=== PATIENT | female | born 1940 | race African-American/Black ===

== ENCOUNTER 2023-03-06 14:37 | Inpatient (IN) | payer MEDICARE, OTHER ==
[~2023-03-06] VITALS: Ht 160 cm; Wt 44.0 kg
[2023-03-06 15:57] LABS: BASOPHILS % (AUTO) 0.1 % (0.0-2.0); EOSINOPHILS # (AUTO) 0.1 K/uL (0.0-0.7); EOSINOPHILS % (AUTO) 0.4 % (0.0-6.0); HEMATOCRIT 26 % (33-45); HEMOGLOBIN 8.2 g/dL (11.5-14.8); LYMPHOCYTES # (AUTO) 1.2 K/uL (0.8-4.8); MEAN CORPUSCULAR HEMOGLOBIN 27 PG (26.0-33.0); MEAN CORPUSCULAR HGB CONC 32 g/dl (31.0-36.0); MEAN CORPUSCULAR VOLUME 84 fL (82-100); MONOCYTES # (AUTO) 0.6 K/uL (0.1-1.30); MONOCYTES % (AUTO) 4.7 % (2.0-12.0); NEUTROPHILS # (AUTO) 11.4 K/uL (1.8-8.9); NEUTROPHILS % (AUTO) 85.8 % (43.0-81.0); PLATELET COUNT (AUTO) 325 K/uL (150-450); RED BLOOD CELL COUNT(AUTO) 3.04 MIL/uL (4.0-5.2); RED CELL DISTRIBUTION WIDTH 14.6 % (11.5-15.0); WHITE BLOOD COUNT (AUTO) 13.3 K/uL (4.3-11.0)
[2023-03-06 16:05] LABS: CALCIUM, SERUM 8.9 mg/dL (8.5-10.1); CARBON DIOXIDE 23 mmol/L (21-32); CHLORIDE 99 mmol/L (98-107); GLUCOSE 253 mg/dL (74-106); POTASSIUM 4.4 mmol/L (3.5-5.1); SODIUM SERUM 131 mmol/L (136-145); UREA NITROGEN, BLOOD 27 mg/dL (7-18)
[2023-03-06] MEDS ORDERED: LEVO100T PO (16:09)
[2023-03-06] MEDS ORDERED: NORM210S TP (16:09)
[2023-03-06] MEDS ORDERED: AMIN887L7 PO (16:09)
[2023-03-06] MEDS ORDERED: ACET-868 PO (16:09)
[2023-03-06] MEDS ORDERED: OXYB5TAB29 PO (16:09)
[2023-03-06] MEDS ORDERED: MULT-213 PO (16:09)
[2023-03-06] MEDS ORDERED: ASCO500T10 PO (16:09)
[2023-03-06] MEDS ORDERED: DAPA5TAB PO (16:09)
[2023-03-06] MEDS ORDERED: METF-441 PO (16:09)
[2023-03-06] MEDS ORDERED: CALC500T53 PO (16:09)
[2023-03-06] MEDS ORDERED: MENT113O TP (16:09)
[2023-03-06] MEDS ORDERED: PANT40TA2 PO (16:09)
[2023-03-06] MEDS ORDERED: ARGI1POW13 PO (16:09)
[2023-03-06] MEDS ORDERED: SENN-261 PO (16:09)
[2023-03-06] MEDS ORDERED: AMLO2.5T2 PO (16:09)
[2023-03-06] MEDS ORDERED: ATOR40TA PO (16:09)
[2023-03-06] MEDS ORDERED: POVI3780 TP (16:09)
[2023-03-06] MEDS ORDERED: GABA-532 PO (16:09)
[2023-03-06 16:12] LABS: ALANINE AMINOTRANSFERASE 40 U/L (12-78); ALBUMIN 2.1 g/dL (3.4-5.0); ALKALINE PHOSPHATASE 138 U/L (46-116); ASPARTATE AMINOTRANSFERASE 51 U/L (15-37); BILIRUBIN,DIRECT 0.2 mg/dL (0.0-0.2); BILIRUBIN,TOTAL 0.4 mg/dL (0.2-1.0); TOTAL PROTEIN, SERUM 7.5 g/dL (6.4-8.2)
[2023-03-06 17:37] LABS: EOSINOPHILS % (MANUAL) 1 % (0-4); LYMPHOCYTES % (MANUAL) 8 % (16-48); MONOCYTES % (MANUAL) 4 % (0-11.0); NEUTROPHILS % (MANUAL) 87 (42-76); PLATELET ESTIMATE ADEQUATE
[2023-03-06 17:38] LABS: ANISOCYTOSIS 1+; ROULEAUX 1+
[2023-03-06 18:24] LABS: APPEARANCE,URINE SLIGHTLY CLOUDY (CLEAR); BILIRUBIN,URINE NEGATIVE (NEGATIVE); BLOOD, URINE TRACE-INTA Ery/uL (NEGATIVE); COLOR,URINE YELLOW (YELLOW); KETONES,URINE NEGATIVE (NEGATIVE); LEUKOCYTE ESTERASE ,URINE 2+ (NEGATIVE); NITRITE, URINE NEGATIVE (NEGATIVE); PROTEIN,URINE 2+ mg/dl (NEGATIVE); UGLUCOSE 3+ mg/dL (NEGATIVE); UROBILINOGEN,URINE 0.2 EU/dL (0.2)
[2023-03-06 18:30] LABS: RBC,URINE 0-2 /HPF (0-2); WBC,URINE 21-50 /HPF (0-3)
[2023-03-06 18:33] LABS: ADD URINE CULTURE YES; BACTERIA,URINE 2+ /HPF (None Seen)
[2023-03-06 21:00] VITALS: BP 118/59; TEMP 98.2; O2SAT 98
[2023-03-06] MEDS ORDERED: CEFTRIAXONE 1GM BAG (ER ONLY) 1 GM/50 ML PIGGYBACK IV ONE (21:00)
[2023-03-06] MEDS ORDERED: ONDANSETRON HCL/PF 4 MG/2 ML VIAL IVP PRN (22:30)
[2023-03-06] MEDS ORDERED: MAG HYDROX/AL HYDROX/SIMETH 30 ML UDC PO PRN (22:30)
[2023-03-06] MEDS ORDERED: ZOLPIDEM TARTRATE 5 MG TABLET PO PRN (22:30)
[2023-03-06] MEDS ORDERED: ACETAMINOPHEN 325 MG TABLET PO PRN (22:30)
[2023-03-06] MEDS ORDERED: SENNOSIDES 8.6 MG TABLET PO PRN (22:30)
[2023-03-06] MEDS ORDERED: MAGNESIUM HYDROXIDE 30 ML UDC PO PRN (22:30)
[2023-03-06] MEDS: IV NS 0.9% 1,000 ML IV PRN (22:32)
[2023-03-06] MEDS ORDERED: VANCOMYCIN 1 GM in IV D5W 250ml IV ONE (23:00)
[2023-03-06] MEDS ORDERED: VANCOMYCIN 1 GM /D5W 250 ML PB IV ONE (23:01)
[2023-03-07] MEDS ORDERED: PIPERACI/TAZO 3.375GM/D5W 50ML PB IV ONE ×2 (00:51→05:55)
[2023-03-07] MEDS: PIPERACILLIN /TAZOBACTAM 3.375 G in IV D5W 50 ML IV SCH ×4 (00:53→18:25)
[2023-03-07 06:38] LABS: BASOPHILS % (AUTO) 0.2 % (0.0-2.0); EOSINOPHILS # (AUTO) 0.1 K/uL (0.0-0.7); EOSINOPHILS % (AUTO) 1.4 % (0.0-6.0); HEMATOCRIT 25 % (33-45); HEMOGLOBIN 8.2 g/dL (11.5-14.8); LYMPHOCYTES # (AUTO) 0.9 K/uL (0.8-4.8); LYMPHOCYTES % (AUTO) 8.2 % (20.0-44.0); MEAN CORPUSCULAR HEMOGLOBIN 28 PG (26.0-33.0); MEAN CORPUSCULAR HGB CONC 33 g/dl (31.0-36.0); MEAN CORPUSCULAR VOLUME 85 fL (82-100); MONOCYTES # (AUTO) 0.6 K/uL (0.1-1.30); MONOCYTES % (AUTO) 5.9 % (2.0-12.0); NEUTROPHILS % (AUTO) 84.3 % (43.0-81.0); PLATELET COUNT (AUTO) 333 K/uL (150-450); RED BLOOD CELL COUNT(AUTO) 2.94 MIL/uL (4.0-5.2); RED CELL DISTRIBUTION WIDTH 14.3 % (11.5-15.0); WHITE BLOOD COUNT (AUTO) 10.7 K/uL (4.3-11.0)
[2023-03-07] MEDS: INSULIN REGULAR, HUMAN 100 UNIT/ML 3 ML VIAL SQ PRN ×4 (06:57→23:02)
[2023-03-07 07:19] LABS: CALCIUM, SERUM 8.8 mg/dL (8.5-10.1); CREATININE 0.8 mg/dL (0.6-1.3); MAGNESIUM 1.9 mg/dL (1.8-2.4); PHOSPHORUS 3.1 mg/dL (2.5-4.9); POTASSIUM 3.9 mmol/L (3.5-5.1)
[2023-03-07] MEDS: PANTOPRAZOLE 40 MG TABLET.DR PO SCH (07:30)
[2023-03-07] MEDS: LEVOTHYROXINE SODIUM 100 MCG TABLET PO SCH (07:30)
[2023-03-07] MEDS: BLOOD SUGAR DIAGNOSTIC 1 EACH STRIP IN SCH ×4 (07:30→22:49)
[2023-03-07 08:00] VITALS: BP 116/54; TEMP 97.7; O2SAT 100
[2023-03-07] MEDS: MULTIVIT W/MINERALS 1 TAB TABLET PO SCH (09:00)
[2023-03-07] MEDS: ASCORBIC ACID 500 MG TABLET PO SCH (09:00)
[2023-03-07] MEDS: CALCIUM CARBONATE (1250) 500 MG TABLET PO SCH (09:00)
[2023-03-07] MEDS: PROSTAT (PYXIS) 30 ML UDC PO SCH (09:00)
[2023-03-07] MEDS: AMLODIPINE BESYLATE 2.5 MG TABLET PO SCH (09:00)
[2023-03-07] MEDS: GABAPENTIN 100 MG CAPSULE PO SCH ×3 (09:00→18:24)
[2023-03-07] MEDS: ARGININE/GLUTAMINE/CALCIUM BMB 1 EACH POWD.PACK PO SCH ×2 (09:00→18:25)
[2023-03-07] MEDS ORDERED: Medication Not On Formulary EA (Dapagliflozin Propanediol (Farxiga) 5 MG) PO SCH (09:00)
[2023-03-07] MEDS: Z GUARD REMEDY 4 OZ OINT TP SCH (11:58)
[2023-03-07 18:35] VITALS: BP 136/65; TEMP 96.4; O2SAT 98
[2023-03-07 20:00] VITALS: BP 101/46; TEMP 97.9; O2SAT 99
[2023-03-07] MEDS: OXYBUTYNIN CHLORIDE ER 5 MG TAB PO SCH (22:49)
[2023-03-07] MEDS: ATORVASTATIN 40 MG TABLET PO SCH (22:49)
[2023-03-07] MEDS: VANCOMYCIN 0.75 GM in IV D5W 250 ML IV SCH (22:50)
[2023-03-08] MEDS: PIPERACILLIN /TAZOBACTAM 3.375 G in IV D5W 50 ML IV SCH ×4 (00:04→17:06)
[2023-03-08 04:00] VITALS: BP 123/53; TEMP 98.8; O2SAT 98
[2023-03-08 06:04] LABS: BASOPHILS % (AUTO) 0.4 % (0.0-2.0); EOSINOPHILS # (AUTO) 0.4 K/uL (0.0-0.7); EOSINOPHILS % (AUTO) 3.8 % (0.0-6.0); HEMATOCRIT 25 % (33-45); HEMOGLOBIN 8.2 g/dL (11.5-14.8); LYMPHOCYTES # (AUTO) 1.1 K/uL (0.8-4.8); MEAN CORPUSCULAR HEMOGLOBIN 28 PG (26.0-33.0); MEAN CORPUSCULAR HGB CONC 33 g/dl (31.0-36.0); MEAN CORPUSCULAR VOLUME 85 fL (82-100); MONOCYTES # (AUTO) 0.7 K/uL (0.1-1.30); MONOCYTES % (AUTO) 6.5 % (2.0-12.0); NEUTROPHILS # (AUTO) 8.6 K/uL (1.8-8.9); NEUTROPHILS % (AUTO) 79.3 % (43.0-81.0); PLATELET COUNT (AUTO) 332 K/uL (150-450); RED BLOOD CELL COUNT(AUTO) 2.97 MIL/uL (4.0-5.2); RED CELL DISTRIBUTION WIDTH 14.6 % (11.5-15.0); WHITE BLOOD COUNT (AUTO) 10.8 K/uL (4.3-11.0)
[2023-03-08 06:25] LABS: CREATININE 0.8 mg/dL (0.6-1.3); POTASSIUM 4.2 mmol/L (3.5-5.1)
[2023-03-08 06:29] LABS: MAGNESIUM 2.2 mg/dL (1.8-2.4); PHOSPHORUS 3.4 mg/dL (2.5-4.9)
[2023-03-08 06:41] LABS: THYROID STIMULATING HORMONE 3.544 uIU/mL (0.358-3.74); URIC ACID 1.8 mg/dL (2.6-7.2)
[2023-03-08] MEDS: INSULIN REGULAR, HUMAN 100 UNIT/ML 3 ML VIAL SQ PRN ×4 (07:04→22:34)
[2023-03-08] MEDS: BLOOD SUGAR DIAGNOSTIC 1 EACH STRIP IN SCH ×4 (07:08→22:32)
[2023-03-08] MEDS: LEVOTHYROXINE SODIUM 100 MCG TABLET PO SCH ×2 (07:30→08:35)
[2023-03-08 08:00] VITALS: BP 107/57; TEMP 98.5; O2SAT 99
[2023-03-08] MEDS: ARGININE/GLUTAMINE/CALCIUM BMB 1 EACH POWD.PACK PO SCH ×2 (08:32→16:23)
[2023-03-08] MEDS: MULTIVIT W/MINERALS 1 TAB TABLET PO SCH ×2 (08:35→08:46)
[2023-03-08] MEDS: PANTOPRAZOLE 40 MG TABLET.DR PO SCH (08:35)
[2023-03-08] MEDS: GABAPENTIN 100 MG CAPSULE PO SCH ×3 (08:35→16:23)
[2023-03-08] MEDS: ASCORBIC ACID 500 MG TABLET PO SCH (08:35)
[2023-03-08] MEDS: CALCIUM CARBONATE (1250) 500 MG TABLET PO SCH ×2 (08:36→08:45)
[2023-03-08] MEDS: PROSTAT (PYXIS) 30 ML UDC PO SCH ×2 (08:36→08:46)
[2023-03-08] MEDS: AMLODIPINE BESYLATE 2.5 MG TABLET PO SCH ×2 (08:37→08:45)
[2023-03-08] MEDS: Z GUARD REMEDY 4 OZ OINT TP SCH (08:37)
[2023-03-08] MEDS: DAPAGLIFLOZIN PROPANEDIOL 5 MG TABLET PO SCH (08:38)
[2023-03-08 20:34] VITALS: BP 113/58; TEMP 98; O2SAT 99
[2023-03-08] MEDS: OXYBUTYNIN CHLORIDE ER 5 MG TAB PO SCH (22:32)
[2023-03-08] MEDS: ATORVASTATIN 40 MG TABLET PO SCH (22:32)
[2023-03-08] MEDS: VANCOMYCIN 0.75 GM in IV D5W 250 ML IV SCH (22:32)
[2023-03-09] MEDS: PIPERACILLIN /TAZOBACTAM 3.375 G in IV D5W 50 ML IV SCH ×5 (00:07→23:24)
[2023-03-09] MEDS: IV NS 0.9% 1,000 ML IV PRN (03:18)
[2023-03-09] MEDS: BLOOD SUGAR DIAGNOSTIC 1 EACH STRIP IN SCH ×4 (06:44→22:04)
[2023-03-09 06:45] LABS: CALCIUM, SERUM 8.7 mg/dL (8.5-10.1); CREATININE 0.8 mg/dL (0.6-1.3); POTASSIUM 4.2 mmol/L (3.5-5.1)
[2023-03-09] MEDS: INSULIN REGULAR, HUMAN 100 UNIT/ML 3 ML VIAL SQ PRN ×4 (06:47→22:04)
[2023-03-09] MEDS: PANTOPRAZOLE 40 MG TABLET.DR PO SCH (07:30)
[2023-03-09 08:00] VITALS: BP 90/54; TEMP 98.1; O2SAT 100
[2023-03-09] MEDS: LEVOTHYROXINE SODIUM 100 MCG TABLET PO SCH (08:13)
[2023-03-09] MEDS: DAPAGLIFLOZIN PROPANEDIOL 5 MG TABLET PO SCH (08:13)
[2023-03-09] MEDS: GABAPENTIN 100 MG CAPSULE PO SCH ×4 (08:13→17:42)
[2023-03-09] MEDS: ARGININE/GLUTAMINE/CALCIUM BMB 1 EACH POWD.PACK PO SCH ×3 (08:15→17:00)
[2023-03-09] MEDS: AMLODIPINE BESYLATE 2.5 MG TABLET PO SCH (08:18)
[2023-03-09] MEDS: PROSTAT (PYXIS) 30 ML UDC PO SCH (08:19)
[2023-03-09] MEDS: CALCIUM CARBONATE (1250) 500 MG TABLET PO SCH (08:19)
[2023-03-09] MEDS: ASCORBIC ACID 500 MG TABLET PO SCH (08:19)
[2023-03-09] MEDS: MULTIVIT W/MINERALS 1 TAB TABLET PO SCH (08:19)
[2023-03-09] MEDS: Z GUARD REMEDY 4 OZ OINT TP SCH (08:20)
[2023-03-09] MEDS: ACETAMINOPHEN 325 MG TABLET PO PRN (09:19)
[2023-03-09] MEDS: GLUCERNA SHAKE 237 ML CAN PO SCH ×2 (11:49→17:42)
[2023-03-09 16:00] VITALS: BP 101/56; TEMP 98.8; O2SAT 97
[2023-03-09] MEDS: APIXABAN 2.5 MG TABLET PO SCH (17:43)
[2023-03-09 20:00] VITALS: BP_SYST 106; BP_DIAS 50; BP_DIAS 55; TEMP 98; O2SAT 98
[2023-03-09] MEDS: ATORVASTATIN 40 MG TABLET PO SCH (21:36)
[2023-03-09] MEDS: OXYBUTYNIN CHLORIDE ER 5 MG TAB PO SCH (21:36)
[2023-03-09] MEDS: VANCOMYCIN 0.75 GM in IV D5W 250 ML IV SCH (23:00)
[2023-03-10] MEDS: PIPERACILLIN /TAZOBACTAM 3.375 G in IV D5W 50 ML IV SCH ×3 (05:23→17:34)
[2023-03-10] MEDS: PANTOPRAZOLE 40 MG TABLET.DR PO SCH (07:30)
[2023-03-10] MEDS: LEVOTHYROXINE SODIUM 100 MCG TABLET PO SCH (07:30)
[2023-03-10 08:00] VITALS: BP 100/50; TEMP 99.6; O2SAT 97
[2023-03-10] MEDS: GLUCERNA SHAKE 237 ML CAN PO SCH ×3 (08:00→17:28)
[2023-03-10] MEDS: BLOOD SUGAR DIAGNOSTIC 1 EACH STRIP IN SCH ×4 (08:02→21:50)
[2023-03-10] MEDS: PROSTAT (PYXIS) 30 ML UDC PO SCH (09:00)
[2023-03-10] MEDS: ASCORBIC ACID 500 MG TABLET PO SCH (09:00)
[2023-03-10] MEDS: ARGININE/GLUTAMINE/CALCIUM BMB 1 EACH POWD.PACK PO SCH ×2 (09:00→17:29)
[2023-03-10] MEDS: MULTIVIT W/MINERALS 1 TAB TABLET PO SCH (09:00)
[2023-03-10] MEDS: Z GUARD REMEDY 4 OZ OINT TP SCH (09:00)
[2023-03-10] MEDS: CALCIUM CARBONATE (1250) 500 MG TABLET PO SCH (09:00)
[2023-03-10] MEDS: DAPAGLIFLOZIN PROPANEDIOL 5 MG TABLET PO SCH (09:00)
[2023-03-10] MEDS: APIXABAN 2.5 MG TABLET PO SCH (09:00)
[2023-03-10] MEDS: GABAPENTIN 100 MG CAPSULE PO SCH ×3 (09:00→17:28)
[2023-03-10] MEDS: AMLODIPINE BESYLATE 2.5 MG TABLET PO SCH (09:00)
[2023-03-10 09:12] LABS: BASOPHILS % (AUTO) 0.4 % (0.0-2.0); EOSINOPHILS # (AUTO) 0.2 K/uL (0.0-0.7); EOSINOPHILS % (AUTO) 1.5 % (0.0-6.0); HEMATOCRIT 24 % (33-45); HEMOGLOBIN 7.8 g/dL (11.5-14.8); LYMPHOCYTES # (AUTO) 1.2 K/uL (0.8-4.8); LYMPHOCYTES % (AUTO) 9.9 % (20.0-44.0); MEAN CORPUSCULAR HEMOGLOBIN 27 PG (26.0-33.0); MEAN CORPUSCULAR HGB CONC 32 g/dl (31.0-36.0); MEAN CORPUSCULAR VOLUME 85 fL (82-100); MONOCYTES # (AUTO) 0.7 K/uL (0.1-1.30); MONOCYTES % (AUTO) 5.5 % (2.0-12.0); NEUTROPHILS # (AUTO) 9.9 K/uL (1.8-8.9); NEUTROPHILS % (AUTO) 82.7 % (43.0-81.0); PLATELET COUNT (AUTO) 308 K/uL (150-450); RED BLOOD CELL COUNT(AUTO) 2.86 MIL/uL (4.0-5.2); RED CELL DISTRIBUTION WIDTH 14.6 % (11.5-15.0)
[2023-03-10 09:27] LABS: ALANINE AMINOTRANSFERASE 31 U/L (12-78); ALBUMIN 1.7 g/dL (3.4-5.0); ALKALINE PHOSPHATASE 132 U/L (46-116); ASPARTATE AMINOTRANSFERASE 31 U/L (15-37); BILIRUBIN,TOTAL 0.2 mg/dL (0.2-1.0); CALCIUM, SERUM 8.6 mg/dL (8.5-10.1); CARBON DIOXIDE 23 mmol/L (21-32); CHLORIDE 105 mmol/L (98-107); CREATININE 0.9 mg/dL (0.6-1.3); GLUCOSE 189 mg/dL (74-106); POTASSIUM 4.3 mmol/L (3.5-5.1); SODIUM SERUM 137 mmol/L (136-145); UREA NITROGEN, BLOOD 19 mg/dL (7-18)
[2023-03-10] MEDS: IV NS 0.9% 1,000 ML IV PRN (10:54)
[2023-03-10] MEDS: VANCOMYCIN 0.75 GM in IV D5W 250 ML IV SCH (12:17)
[2023-03-10] MEDS: INSULIN GLARGINE, 100 UNIT/ML CARTRIDGE SQ SCH ×2 (12:21→17:31)
[2023-03-10 13:22] LABS: INR 1.11 (0.91-1.10); PROTHROMBIN TIME 11.6 SECS (9.2-11.1)
[2023-03-10] MEDS: ENOXAPARIN SODIUM 40 MG/0.4 ML DISP.SYRIN SQ SCH ×3 (13:52→21:33)
[2023-03-10 16:00] VITALS: BP 46/100; TEMP 98.7; O2SAT 81
[2023-03-10] MEDS: INSULIN REGULAR, HUMAN 100 UNIT/ML 3 ML VIAL SQ PRN ×2 (17:35→21:51)
[2023-03-10 20:52] VITALS: BP 108/52; TEMP 98.8; O2SAT 99
[2023-03-10] MEDS: OXYBUTYNIN CHLORIDE ER 5 MG TAB PO SCH (21:31)
[2023-03-10] MEDS: CEFEPIME 1 GM in IV D5W 50 ML IV SCH (21:31)
[2023-03-10] MEDS: ATORVASTATIN 40 MG TABLET PO SCH (21:31)
[2023-03-11] MEDS: CEFEPIME 1 GM in IV D5W 50 ML IV SCH ×3 (04:55→21:52)
[2023-03-11] MEDS: IV NS 0.9% 1,000 ML IV PRN ×2 (04:55→18:33)
[2023-03-11 06:08] LABS: CALCIUM, SERUM 8.8 mg/dL (8.5-10.1); CARBON DIOXIDE 24 mmol/L (21-32); CHLORIDE 104 mmol/L (98-107); CREATININE 0.7 mg/dL (0.6-1.3); GLUCOSE 128 mg/dL (74-106); POTASSIUM 3.8 mmol/L (3.5-5.1); SODIUM SERUM 134 mmol/L (136-145); UREA NITROGEN, BLOOD 18 mg/dL (7-18)
[2023-03-11] MEDS: BLOOD SUGAR DIAGNOSTIC 1 EACH STRIP IN SCH ×4 (06:35→22:59)
[2023-03-11] MEDS: INSULIN REGULAR, HUMAN 100 UNIT/ML 3 ML VIAL SQ PRN ×2 (06:36→22:59)
[2023-03-11 07:43] LABS: BASOPHILS # (AUTO) 0.1 K/uL (0.0-0.2); BASOPHILS % (AUTO) 0.5 % (0.0-2.0); EOSINOPHILS # (AUTO) 0.2 K/uL (0.0-0.7); EOSINOPHILS % (AUTO) 2.1 % (0.0-6.0); HEMATOCRIT 24 % (33-45); HEMOGLOBIN 7.9 g/dL (11.5-14.8); LYMPHOCYTES # (AUTO) 1.4 K/uL (0.8-4.8); LYMPHOCYTES % (AUTO) 12.4 % (20.0-44.0); MEAN CORPUSCULAR HEMOGLOBIN 28 PG (26.0-33.0); MEAN CORPUSCULAR HGB CONC 32 g/dl (31.0-36.0); MEAN CORPUSCULAR VOLUME 86 fL (82-100); MONOCYTES # (AUTO) 0.8 K/uL (0.1-1.30); MONOCYTES % (AUTO) 7.5 % (2.0-12.0); NEUTROPHILS # (AUTO) 8.6 K/uL (1.8-8.9); NEUTROPHILS % (AUTO) 77.5 % (43.0-81.0); PLATELET COUNT (AUTO) 290 K/uL (150-450); RED BLOOD CELL COUNT(AUTO) 2.85 MIL/uL (4.0-5.2); RED CELL DISTRIBUTION WIDTH 14.7 % (11.5-15.0)
[2023-03-11 08:00] VITALS: BP 111/44; TEMP 99; O2SAT 96
[2023-03-11] MEDS: GLUCERNA SHAKE 237 ML CAN PO SCH ×3 (08:00→17:00)
[2023-03-11] MEDS ORDERED: IODIXANOL 150 ML IV ONE (08:07)
[2023-03-11] MEDS: PANTOPRAZOLE 40 MG TABLET.DR PO SCH (08:52)
[2023-03-11] MEDS: LEVOTHYROXINE SODIUM 100 MCG TABLET PO SCH (08:53)
[2023-03-11] MEDS: ARGININE/GLUTAMINE/CALCIUM BMB 1 EACH POWD.PACK PO SCH ×2 (08:53→17:00)
[2023-03-11] MEDS: PROSTAT (PYXIS) 30 ML UDC PO SCH (08:54)
[2023-03-11] MEDS: ENOXAPARIN SODIUM 40 MG/0.4 ML DISP.SYRIN SQ SCH ×2 (08:55→21:00)
[2023-03-11] MEDS: INSULIN GLARGINE, 100 UNIT/ML CARTRIDGE SQ SCH ×2 (09:00→17:00)
[2023-03-11] MEDS: ASCORBIC ACID 500 MG TABLET PO SCH (09:00)
[2023-03-11] MEDS: THERAHONEY GEL 1.5 OZ TUBE TP SCH (09:00)
[2023-03-11] MEDS: CALCIUM CARBONATE (1250) 500 MG TABLET PO SCH (09:00)
[2023-03-11] MEDS: MULTIVIT W/MINERALS 1 TAB TABLET PO SCH (09:00)
[2023-03-11] MEDS: Z GUARD REMEDY 4 OZ OINT TP SCH (09:00)
[2023-03-11] MEDS: GABAPENTIN 100 MG CAPSULE PO SCH ×3 (09:00→17:00)
[2023-03-11] MEDS: DAPAGLIFLOZIN PROPANEDIOL 5 MG TABLET PO SCH (09:00)
[2023-03-11] MEDS: AMLODIPINE BESYLATE 2.5 MG TABLET PO SCH (09:00)
[2023-03-11] MEDS ORDERED: LIDOCAINE HCL/MPF 1% 30 ML VIAL IJ ONE (09:39)
[2023-03-11] MEDS ORDERED: IV NS 0.9% 1,000 ML ONE (10:04)
[2023-03-11] MEDS ORDERED: IV SET PRIMARY PUMP SET 1 EA INFUS.SET MC ONE (10:04)
[2023-03-11 12:00] VITALS: BP 117/51; TEMP 97.8; O2SAT 98
[2023-03-11] MEDS: VANCOMYCIN 0.75 GM in IV D5W 250 ML IV SCH (12:00)
[2023-03-11 14:00] VITALS: BP 122/45; TEMP 97.8; O2SAT 98
[2023-03-11 18:00] VITALS: BP 110/51; TEMP 98.3; O2SAT 100
[2023-03-11] MEDS: ACETAMINOPHEN 325 MG TABLET PO PRN (19:35)
[2023-03-11 20:00] VITALS: BP 113/57; TEMP 97.6; O2SAT 98
[2023-03-11] MEDS: ATORVASTATIN 40 MG TABLET PO SCH (21:52)
[2023-03-11] MEDS: OXYBUTYNIN CHLORIDE ER 5 MG TAB PO SCH (21:52)
[2023-03-12] MEDS: CEFEPIME 1 GM in IV D5W 50 ML IV SCH ×4 (05:18→21:06)
[2023-03-12 06:36] LABS: BASOPHILS % (AUTO) 0.4 % (0.0-2.0); EOSINOPHILS # (AUTO) 0.1 K/uL (0.0-0.7); EOSINOPHILS % (AUTO) 1.3 % (0.0-6.0); HEMATOCRIT 25 % (33-45); LYMPHOCYTES % (AUTO) 9.4 % (20.0-44.0); MEAN CORPUSCULAR HEMOGLOBIN 27 PG (26.0-33.0); MEAN CORPUSCULAR HGB CONC 32 g/dl (31.0-36.0); MEAN CORPUSCULAR VOLUME 86 fL (82-100); MONOCYTES # (AUTO) 0.7 K/uL (0.1-1.30); MONOCYTES % (AUTO) 6.8 % (2.0-12.0); NEUTROPHILS # (AUTO) 8.9 K/uL (1.8-8.9); NEUTROPHILS % (AUTO) 82.1 % (43.0-81.0); PLATELET COUNT (AUTO) 288 K/uL (150-450); RED BLOOD CELL COUNT(AUTO) 2.91 MIL/uL (4.0-5.2); WHITE BLOOD COUNT (AUTO) 10.9 K/uL (4.3-11.0)
[2023-03-12] MEDS: INSULIN REGULAR, HUMAN 100 UNIT/ML 3 ML VIAL SQ PRN ×3 (06:39→17:20)
[2023-03-12] MEDS: BLOOD SUGAR DIAGNOSTIC 1 EACH STRIP IN SCH ×4 (06:46→21:51)
[2023-03-12 06:53] LABS: ALBUMIN 1.6 g/dL (3.4-5.0); BILIRUBIN,TOTAL 0.3 mg/dL (0.2-1.0); CALCIUM, SERUM 8.2 mg/dL (8.5-10.1); CREATININE 0.7 mg/dL (0.6-1.3); POTASSIUM 3.7 mmol/L (3.5-5.1); TOTAL PROTEIN, SERUM 6.7 g/dL (6.4-8.2)
[2023-03-12 07:00] VITALS: BP 108/55; TEMP 98; O2SAT 96
[2023-03-12] MEDS: LEVOTHYROXINE SODIUM 100 MCG TABLET PO SCH (08:07)
[2023-03-12] MEDS: PANTOPRAZOLE 40 MG TABLET.DR PO SCH (08:07)
[2023-03-12] MEDS: GLUCERNA SHAKE 237 ML CAN PO SCH ×3 (08:08→16:55)
[2023-03-12] MEDS: GABAPENTIN 100 MG CAPSULE PO SCH ×3 (09:04→17:00)
[2023-03-12] MEDS: CALCIUM CARBONATE (1250) 500 MG TABLET PO SCH (09:04)
[2023-03-12] MEDS: MULTIVIT W/MINERALS 1 TAB TABLET PO SCH (09:04)
[2023-03-12] MEDS: AMLODIPINE BESYLATE 2.5 MG TABLET PO SCH (09:04)
[2023-03-12] MEDS: ASCORBIC ACID 500 MG TABLET PO SCH (09:05)
[2023-03-12] MEDS: ARGININE/GLUTAMINE/CALCIUM BMB 1 EACH POWD.PACK PO SCH ×2 (09:06→16:56)
[2023-03-12] MEDS: DAPAGLIFLOZIN PROPANEDIOL 5 MG TABLET PO SCH (09:16)
[2023-03-12] MEDS: INSULIN GLARGINE, 100 UNIT/ML CARTRIDGE SQ SCH ×3 (09:17→17:22)
[2023-03-12] MEDS: Z GUARD REMEDY 4 OZ OINT TP PRN (09:20)
[2023-03-12] MEDS: THERAHONEY GEL 1.5 OZ TUBE TP SCH (09:20)
[2023-03-12] MEDS: Z GUARD REMEDY 4 OZ OINT TP SCH (09:21)
[2023-03-12] MEDS: ENOXAPARIN SODIUM 40 MG/0.4 ML DISP.SYRIN SQ SCH ×3 (09:23→21:08)
[2023-03-12] MEDS: MORPHINE SULFATE INJ 2 MG/ML DISP.SYRIN IV PRN (09:47)
[2023-03-12] MEDS: PROSOURCE / PROSTAT (PYXIS) 30 ML UDC GT SCH (11:12)
[2023-03-12] MEDS: VANCOMYCIN 0.75 GM in IV D5W 250 ML IV SCH (12:12)
[2023-03-12] MEDS: IV NS 0.9% 1,000 ML IV PRN (12:18)
[2023-03-12 16:00] VITALS: BP 92/44; TEMP 97.8; O2SAT 97
[2023-03-12 20:00] VITALS: BP 104/58; TEMP 98.9; O2SAT 99
[2023-03-12 21:00] VITALS: BP 100/57; TEMP 98.9; O2SAT 98
[2023-03-12] MEDS: ATORVASTATIN 40 MG TABLET PO SCH ×2 (21:07→21:16)
[2023-03-12] MEDS: OXYBUTYNIN CHLORIDE ER 5 MG TAB PO SCH ×2 (21:07→21:16)
[2023-03-12 21:13] VITALS: BP 104/58; TEMP 98.9; O2SAT 99
[2023-03-13] MEDS: CEFEPIME 1 GM in IV D5W 50 ML IV SCH ×3 (04:00→21:20)
[2023-03-13] MEDS: DEXTROSE 50%-WATER 50 ML DISP.SYRIN IV PRN (05:40)
[2023-03-13] MEDS: BLOOD SUGAR DIAGNOSTIC 1 EACH STRIP IN SCH ×4 (06:34→22:00)
[2023-03-13 07:00] VITALS: BP 118/46; TEMP 98.8; O2SAT 96
[2023-03-13] MEDS ORDERED: IV NS 0.9% 1,000 ML IV ONE (08:00)
[2023-03-13] MEDS: LEVOTHYROXINE SODIUM 100 MCG TABLET PO SCH (08:02)
[2023-03-13] MEDS: PANTOPRAZOLE 40 MG TABLET.DR PO SCH (08:02)
[2023-03-13] MEDS: GLUCERNA SHAKE 237 ML CAN PO SCH ×3 (08:07→17:31)
[2023-03-13] MEDS: INSULIN GLARGINE, 100 UNIT/ML CARTRIDGE SQ SCH ×2 (09:00→17:00)
[2023-03-13] MEDS: AMLODIPINE BESYLATE 2.5 MG TABLET PO SCH (09:00)
[2023-03-13] MEDS: GABAPENTIN 100 MG CAPSULE PO SCH ×3 (09:35→17:00)
[2023-03-13] MEDS: ASCORBIC ACID 500 MG TABLET PO SCH (09:35)
[2023-03-13] MEDS: MULTIVIT W/MINERALS 1 TAB TABLET PO SCH (09:35)
[2023-03-13] MEDS: CALCIUM CARBONATE (1250) 500 MG TABLET PO SCH (09:35)
[2023-03-13] MEDS: ENOXAPARIN SODIUM 40 MG/0.4 ML DISP.SYRIN SQ SCH ×3 (09:37→21:18)
[2023-03-13] MEDS: ARGININE/GLUTAMINE/CALCIUM BMB 1 EACH POWD.PACK PO SCH ×2 (09:39→17:33)
[2023-03-13] MEDS: PROSOURCE / PROSTAT (PYXIS) 30 ML UDC GT SCH (09:39)
[2023-03-13] MEDS: DAPAGLIFLOZIN PROPANEDIOL 5 MG TABLET PO SCH (09:58)
[2023-03-13] MEDS: Z GUARD REMEDY 4 OZ OINT TP PRN (10:28)
[2023-03-13] MEDS: THERAHONEY GEL 1.5 OZ TUBE TP SCH (10:28)
[2023-03-13] MEDS: Z GUARD REMEDY 4 OZ OINT TP SCH (10:30)
[2023-03-13] MEDS: INSULIN REGULAR, HUMAN 100 UNIT/ML 3 ML VIAL SQ PRN (11:47)
[2023-03-13] MEDS: VANCOMYCIN 0.75 GM in IV D5W 250 ML IV SCH (12:01)
[2023-03-13 16:00] VITALS: BP 104/48; TEMP 98.7; O2SAT 96
[2023-03-13] MEDS: ACETAMINOPHEN 325 MG TABLET PO PRN (19:13)
[2023-03-13] MEDS: MEGESTROL ACETATE 40 MG TABLET PO SCH (19:13)
[2023-03-13 20:00] VITALS: BP 118/49; TEMP 98.8; O2SAT 97
[2023-03-13 20:48] VITALS: BP 118/49; TEMP 98.8; O2SAT 97
[2023-03-13] MEDS: ATORVASTATIN 40 MG TABLET PO SCH ×2 (21:18→21:38)
[2023-03-13] MEDS: OXYBUTYNIN CHLORIDE ER 5 MG TAB PO SCH ×2 (21:19→21:37)
[2023-03-13] MEDS: IV NS 0.9% 1,000 ML IV PRN (22:13)
[2023-03-14] MEDS: CEFEPIME 1 GM in IV D5W 50 ML IV SCH (04:53)
[2023-03-14 06:20] LABS: CALCIUM, SERUM 8.1 mg/dL (8.5-10.1); CREATININE 0.7 mg/dL (0.6-1.3); POTASSIUM 3.3 mmol/L (3.5-5.1)
[2023-03-14] MEDS: LEVOTHYROXINE SODIUM 100 MCG TABLET PO SCH ×2 (07:30→08:35)
[2023-03-14] MEDS: PANTOPRAZOLE 40 MG TABLET.DR PO SCH ×2 (07:30→08:35)
[2023-03-14] MEDS: BLOOD SUGAR DIAGNOSTIC 1 EACH STRIP IN SCH ×4 (07:48→21:54)
[2023-03-14 08:00] VITALS: BP 123/50; TEMP 98
[2023-03-14] MEDS: GLUCERNA SHAKE 237 ML CAN PO SCH ×3 (08:38→17:22)
[2023-03-14] MEDS: THERAHONEY GEL 1.5 OZ TUBE TP SCH (08:39)
[2023-03-14] MEDS: CALCIUM CARBONATE (1250) 500 MG TABLET PO SCH ×2 (08:39→09:00)
[2023-03-14] MEDS: MEGESTROL ACETATE 40 MG TABLET PO SCH ×3 (08:39→17:26)
[2023-03-14] MEDS: ASCORBIC ACID 500 MG TABLET PO SCH ×2 (08:40→09:00)
[2023-03-14] MEDS: GABAPENTIN 100 MG CAPSULE PO SCH ×4 (08:40→17:26)
[2023-03-14] MEDS: AMLODIPINE BESYLATE 2.5 MG TABLET PO SCH ×2 (08:40→09:00)
[2023-03-14] MEDS: MULTIVIT W/MINERALS 1 TAB TABLET PO SCH ×2 (08:40→09:00)
[2023-03-14] MEDS: INSULIN GLARGINE, 100 UNIT/ML CARTRIDGE SQ SCH ×2 (08:42→17:20)
[2023-03-14] MEDS: ENOXAPARIN SODIUM 40 MG/0.4 ML DISP.SYRIN SQ SCH ×2 (08:43→20:49)
[2023-03-14] MEDS: ARGININE/GLUTAMINE/CALCIUM BMB 1 EACH POWD.PACK PO SCH ×4 (08:44→17:29)
[2023-03-14] MEDS: PROSOURCE / PROSTAT (PYXIS) 30 ML UDC GT SCH ×2 (08:44→09:00)
[2023-03-14] MEDS: DAPAGLIFLOZIN PROPANEDIOL 5 MG TABLET PO SCH ×2 (08:44→09:00)
[2023-03-14] MEDS: Z GUARD REMEDY 4 OZ OINT TP PRN (08:57)
[2023-03-14] MEDS: Z GUARD REMEDY 4 OZ OINT TP SCH (09:00)
[2023-03-14] MEDS ORDERED: POTASSIUM CHLORIDE 20 MEQ TAB.PRT.SR PO SCH (11:00)
[2023-03-14] MEDS: VANCOMYCIN 0.75 GM in IV D5W 250 ML IV SCH (12:11)
[2023-03-14 16:00] VITALS: BP 120/56; TEMP 97.4; O2SAT 99
[2023-03-14] MEDS: INSULIN REGULAR, HUMAN 100 UNIT/ML 3 ML VIAL SQ PRN ×2 (17:18→21:56)
[2023-03-14] MEDS: IV NS 0.9% 1,000 ML IV PRN (19:38)
[2023-03-14 20:00] VITALS: BP 101/41; TEMP 98.5; O2SAT 96
[2023-03-14] MEDS: ATORVASTATIN 40 MG TABLET PO SCH (21:55)
[2023-03-14] MEDS: OXYBUTYNIN CHLORIDE ER 5 MG TAB PO SCH (21:55)
[2023-03-15 06:08] LABS: CALCIUM, SERUM 8.2 mg/dL (8.5-10.1); CREATININE 0.6 mg/dL (0.6-1.3); POTASSIUM 3.6 mmol/L (3.5-5.1)
[2023-03-15] MEDS: DEXTROSE 50%-WATER 50 ML DISP.SYRIN IV PRN (06:23)
[2023-03-15] MEDS: BLOOD SUGAR DIAGNOSTIC 1 EACH STRIP IN SCH ×4 (06:58→22:11)
[2023-03-15] MEDS: LEVOTHYROXINE SODIUM 100 MCG TABLET PO SCH (07:30)
[2023-03-15] MEDS: PANTOPRAZOLE 40 MG TABLET.DR PO SCH (07:30)
[2023-03-15 08:00] VITALS: BP 128/55; TEMP 97.4; O2SAT 98
[2023-03-15] MEDS: PROSOURCE / PROSTAT (PYXIS) 30 ML UDC GT SCH (09:00)
[2023-03-15] MEDS: DAPAGLIFLOZIN PROPANEDIOL 5 MG TABLET PO SCH (09:00)
[2023-03-15] MEDS: MEGESTROL ACETATE 40 MG TABLET PO SCH ×2 (09:00→16:29)
[2023-03-15] MEDS: ENOXAPARIN SODIUM 40 MG/0.4 ML DISP.SYRIN SQ SCH ×2 (09:00→21:00)
[2023-03-15] MEDS: ASCORBIC ACID 500 MG TABLET PO SCH (09:00)
[2023-03-15] MEDS: Z GUARD REMEDY 4 OZ OINT TP SCH (09:00)
[2023-03-15] MEDS: AMLODIPINE BESYLATE 2.5 MG TABLET PO SCH (09:00)
[2023-03-15] MEDS: INSULIN GLARGINE, 100 UNIT/ML CARTRIDGE SQ SCH ×3 (09:00→16:39)
[2023-03-15] MEDS: GABAPENTIN 100 MG CAPSULE PO SCH ×3 (09:00→16:29)
[2023-03-15] MEDS: CALCIUM CARBONATE (1250) 500 MG TABLET PO SCH (09:00)
[2023-03-15] MEDS: MULTIVIT W/MINERALS 1 TAB TABLET PO SCH (09:00)
[2023-03-15] MEDS: THERAHONEY GEL 1.5 OZ TUBE TP SCH (09:00)
[2023-03-15] MEDS: GLUCERNA SHAKE 237 ML CAN PO SCH ×3 (09:41→16:34)
[2023-03-15] MEDS: IV NS 0.9% 1,000 ML IV PRN (10:01)
[2023-03-15] MEDS: INSULIN REGULAR, HUMAN 100 UNIT/ML 3 ML VIAL SQ PRN ×3 (11:40→22:23)
[2023-03-15] MEDS: VANCOMYCIN 0.75 GM in IV D5W 250 ML IV SCH (14:05)
[2023-03-15 16:00] VITALS: BP 121/61; TEMP 97.4; O2SAT 98
[2023-03-15] MEDS: ARGININE/GLUTAMINE/CALCIUM BMB 1 EACH POWD.PACK PO SCH (16:29)
[2023-03-15 21:31] VITALS: BP 131/58; TEMP 98.6; O2SAT 98
[2023-03-15] MEDS: ATORVASTATIN 40 MG TABLET PO SCH (22:11)
[2023-03-15] MEDS: OXYBUTYNIN CHLORIDE ER 5 MG TAB PO SCH (22:11)
[2023-03-16] MEDS ORDERED: IV NS 0.9% 1,000 ML IV PRN (06:00)
[2023-03-16] MEDS ORDERED: VANCOMYCIN 500 MG in IV D5W 100ml IV SCH (06:00)
[2023-03-16 06:02] LABS: BASOPHILS % (AUTO) 0.2 % (0.0-2.0); EOSINOPHILS # (AUTO) 0.1 K/uL (0.0-0.7); HEMATOCRIT 22 % (33-45); HEMOGLOBIN 7.3 g/dL (11.5-14.8); LYMPHOCYTES # (AUTO) 1.3 K/uL (0.8-4.8); LYMPHOCYTES % (AUTO) 13.4 % (20.0-44.0); MEAN CORPUSCULAR HEMOGLOBIN 28 PG (26.0-33.0); MEAN CORPUSCULAR HGB CONC 33 g/dl (31.0-36.0); MEAN CORPUSCULAR VOLUME 85 fL (82-100); MONOCYTES # (AUTO) 0.5 K/uL (0.1-1.30); NEUTROPHILS # (AUTO) 7.7 K/uL (1.8-8.9); NEUTROPHILS % (AUTO) 80.4 % (43.0-81.0); PLATELET COUNT (AUTO) 272 K/uL (150-450); RED BLOOD CELL COUNT(AUTO) 2.64 MIL/uL (4.0-5.2); RED CELL DISTRIBUTION WIDTH 14.7 % (11.5-15.0); WHITE BLOOD COUNT (AUTO) 9.6 K/uL (4.3-11.0)
[2023-03-16 06:24] LABS: INR 1.1 (0.91-1.10); PROTHROMBIN TIME 11.5 SECS (9.2-11.1)
[2023-03-16 06:38] LABS: CALCIUM, SERUM 8.3 mg/dL (8.5-10.1); CREATININE 0.6 mg/dL (0.6-1.3); MAGNESIUM 2.3 mg/dL (1.8-2.4); PHOSPHORUS 1.9 mg/dL (2.5-4.9); POTASSIUM 3.4 mmol/L (3.5-5.1)
[2023-03-16 07:00] VITALS: BP 134/55; TEMP 98.2; O2SAT 99
[2023-03-16] MEDS: PANTOPRAZOLE 40 MG TABLET.DR PO SCH (07:30)
[2023-03-16] MEDS: LEVOTHYROXINE SODIUM 100 MCG TABLET PO SCH (07:30)
[2023-03-16] MEDS: BLOOD SUGAR DIAGNOSTIC 1 EACH STRIP IN SCH ×4 (07:59→22:21)
[2023-03-16] MEDS: GLUCERNA SHAKE 237 ML CAN PO SCH ×3 (08:07→18:14)
[2023-03-16] MEDS: DAPAGLIFLOZIN PROPANEDIOL 5 MG TABLET PO SCH (08:51)
[2023-03-16] MEDS: ARGININE/GLUTAMINE/CALCIUM BMB 1 EACH POWD.PACK PO SCH ×2 (08:51→17:00)
[2023-03-16] MEDS: PROSOURCE / PROSTAT (PYXIS) 30 ML UDC GT SCH (08:51)
[2023-03-16] MEDS: GABAPENTIN 100 MG CAPSULE PO SCH ×3 (08:52→17:00)
[2023-03-16] MEDS: MEGESTROL ACETATE 40 MG TABLET PO SCH ×2 (08:52→17:00)
[2023-03-16] MEDS: CALCIUM CARBONATE (1250) 500 MG TABLET PO SCH (08:53)
[2023-03-16] MEDS: ASCORBIC ACID 500 MG TABLET PO SCH (08:53)
[2023-03-16] MEDS: MULTIVIT W/MINERALS 1 TAB TABLET PO SCH (08:53)
[2023-03-16] MEDS: ENOXAPARIN SODIUM 40 MG/0.4 ML DISP.SYRIN SQ SCH ×2 (08:54→21:15)
[2023-03-16] MEDS: AMLODIPINE BESYLATE 2.5 MG TABLET PO SCH (08:55)
[2023-03-16] MEDS: INSULIN GLARGINE, 100 UNIT/ML CARTRIDGE SQ SCH ×2 (08:56→18:17)
[2023-03-16] MEDS: THERAHONEY GEL 1.5 OZ TUBE TP SCH (09:02)
[2023-03-16] MEDS: Z GUARD REMEDY 4 OZ OINT TP SCH (09:03)
[2023-03-16] MEDS ORDERED: POTASSIUM CHLORIDE 20 MEQ POWDER PACKET PO ONE (10:00)
[2023-03-16] MEDS ORDERED: LIDOCAINE HCL/MPF 1% 30 ML VIAL IJ ONE (11:11)
[2023-03-16] MEDS: VANCOMYCIN 0.75 GM in IV D5W 250 ML IV SCH (12:07)
[2023-03-16] MEDS ORDERED: KETAMINE HCL(200MG/20ML) 10 MG/ML VIAL ONE (14:02)
[2023-03-16] MEDS ORDERED: Magnesium 1 GM/2 ML VIAL ONE (14:54)
[2023-03-16] MEDS ORDERED: CELLULOSE,OXIDIZED 1 EACH EACH MC ONE (14:59)
[2023-03-16 16:00] VITALS: BP 120/57; TEMP 97.3; O2SAT 100
[2023-03-16] MEDS ORDERED: Sodium Phosphate 15 MMOL in IV NS 0.9% 245 ML IV SCH (17:00)
[2023-03-16] MEDS: INSULIN REGULAR, HUMAN 100 UNIT/ML 3 ML VIAL SQ PRN (18:15)
[2023-03-16 20:00] VITALS: BP 128/70; TEMP 98; O2SAT 96
[2023-03-16] MEDS: ATORVASTATIN 40 MG TABLET PO SCH (21:15)
[2023-03-16] MEDS: OXYBUTYNIN CHLORIDE ER 5 MG TAB PO SCH (21:15)
[2023-03-17 01:43] LABS: HEMOGLOBIN 10.4 g/dL (11.5-14.8)
[2023-03-17] MEDS: MORPHINE SULFATE INJ 2 MG/ML DISP.SYRIN IV PRN (02:17)
[2023-03-17] MEDS: IV NS 0.9% 1,000 ML IV PRN ×2 (03:00→19:25)
[2023-03-17] MEDS: VANCOMYCIN 500 MG in IV D5W 100ml IV SCH ×2 (05:03→23:50)
[2023-03-17] MEDS: INSULIN REGULAR, HUMAN 100 UNIT/ML 3 ML VIAL SQ PRN (06:05)
[2023-03-17 06:25] LABS: BASOPHILS % (AUTO) 0.1 % (0.0-2.0); EOSINOPHILS % (AUTO) 0.2 % (0.0-6.0); HEMATOCRIT 30 % (33-45); LYMPHOCYTES # (AUTO) 0.8 K/uL (0.8-4.8); LYMPHOCYTES % (AUTO) 6.5 % (20.0-44.0); MEAN CORPUSCULAR HEMOGLOBIN 28 PG (26.0-33.0); MEAN CORPUSCULAR HGB CONC 33 g/dl (31.0-36.0); MEAN CORPUSCULAR VOLUME 85 fL (82-100); MONOCYTES # (AUTO) 0.7 K/uL (0.1-1.30); MONOCYTES % (AUTO) 5.2 % (2.0-12.0); NEUTROPHILS # (AUTO) 11.3 K/uL (1.8-8.9); PLATELET COUNT (AUTO) 239 K/uL (150-450); RED BLOOD CELL COUNT(AUTO) 3.56 MIL/uL (4.0-5.2); RED CELL DISTRIBUTION WIDTH 14.4 % (11.5-15.0); WHITE BLOOD COUNT (AUTO) 12.8 K/uL (4.3-11.0)
[2023-03-17] MEDS: BLOOD SUGAR DIAGNOSTIC 1 EACH STRIP IN SCH ×4 (06:42→21:51)
[2023-03-17 06:49] LABS: ALANINE AMINOTRANSFERASE 13 U/L (12-78); ALBUMIN 1.8 g/dL (3.4-5.0); ALKALINE PHOSPHATASE 99 U/L (46-116); ASPARTATE AMINOTRANSFERASE 20 U/L (15-37); BILIRUBIN,TOTAL 0.7 mg/dL (0.2-1.0); CARBON DIOXIDE 20 mmol/L (21-32); CHLORIDE 109 mmol/L (98-107); CREATININE 0.5 mg/dL (0.6-1.3); GLUCOSE 155 mg/dL (74-106); POTASSIUM 3.1 mmol/L (3.5-5.1); SODIUM SERUM 138 mmol/L (136-145); TOTAL PROTEIN, SERUM 6.4 g/dL (6.4-8.2); UREA NITROGEN, BLOOD 7 mg/dL (7-18)
[2023-03-17 08:00] VITALS: BP 139/58; TEMP 98.2; O2SAT 97
[2023-03-17] MEDS: GABAPENTIN 100 MG CAPSULE PO SCH ×3 (08:45→16:30)
[2023-03-17] MEDS: PANTOPRAZOLE 40 MG TABLET.DR PO SCH (08:45)
[2023-03-17] MEDS: MEGESTROL ACETATE 40 MG TABLET PO SCH ×2 (08:45→16:30)
[2023-03-17] MEDS: LEVOTHYROXINE SODIUM 100 MCG TABLET PO SCH (08:45)
[2023-03-17] MEDS: ASCORBIC ACID 500 MG TABLET PO SCH (08:45)
[2023-03-17] MEDS: MULTIVIT W/MINERALS 1 TAB TABLET PO SCH (08:45)
[2023-03-17] MEDS: CALCIUM CARBONATE (1250) 500 MG TABLET PO SCH (08:45)
[2023-03-17] MEDS: AMLODIPINE BESYLATE 2.5 MG TABLET PO SCH (08:46)
[2023-03-17] MEDS: ENOXAPARIN SODIUM 40 MG/0.4 ML DISP.SYRIN SQ SCH ×2 (09:00→21:09)
[2023-03-17] MEDS: PROSOURCE / PROSTAT (PYXIS) 30 ML UDC GT SCH (09:05)
[2023-03-17] MEDS: GLUCERNA SHAKE 237 ML CAN PO SCH ×3 (09:05→16:30)
[2023-03-17] MEDS: ARGININE/GLUTAMINE/CALCIUM BMB 1 EACH POWD.PACK PO SCH ×2 (09:06→16:30)
[2023-03-17] MEDS: DAPAGLIFLOZIN PROPANEDIOL 5 MG TABLET PO SCH (09:06)
[2023-03-17] MEDS: THERAHONEY GEL 1.5 OZ TUBE TP SCH (09:07)
[2023-03-17] MEDS: Z GUARD REMEDY 4 OZ OINT TP SCH (09:07)
[2023-03-17] MEDS: INSULIN GLARGINE, 100 UNIT/ML CARTRIDGE SQ SCH ×2 (09:09→17:00)
[2023-03-17] MEDS ORDERED: POTASSIUM CHLORIDE 20 MEQ TAB.PRT.SR PO SCH (10:00)
[2023-03-17] MEDS: POTASSIUM CHLORIDE 20 MEQ POWDER PACKET PO SCH ×2 (11:19→12:27)
[2023-03-17 16:00] VITALS: BP 130/61; TEMP 98.2; O2SAT 98
[2023-03-17 20:27] VITALS: BP 123/51; TEMP 98.8; O2SAT 97
[2023-03-17] MEDS: ATORVASTATIN 40 MG TABLET PO SCH (21:08)
[2023-03-17] MEDS: OXYBUTYNIN CHLORIDE ER 5 MG TAB PO SCH (21:08)
[2023-03-18] MEDS: IV NS 0.9% 1,000 ML IV PRN (03:41)
[2023-03-18 06:48] LABS: BASOPHILS % (AUTO) 0.2 % (0.0-2.0); EOSINOPHILS # (AUTO) 0.1 K/uL (0.0-0.7); EOSINOPHILS % (AUTO) 0.4 % (0.0-6.0); HEMATOCRIT 29 % (33-45); HEMOGLOBIN 9.3 g/dL (11.5-14.8); LYMPHOCYTES # (AUTO) 1.1 K/uL (0.8-4.8); LYMPHOCYTES % (AUTO) 7.8 % (20.0-44.0); MEAN CORPUSCULAR HEMOGLOBIN 28 PG (26.0-33.0); MEAN CORPUSCULAR HGB CONC 33 g/dl (31.0-36.0); MEAN CORPUSCULAR VOLUME 85 fL (82-100); MONOCYTES # (AUTO) 0.7 K/uL (0.1-1.30); NEUTROPHILS # (AUTO) 12.2 K/uL (1.8-8.9); NEUTROPHILS % (AUTO) 86.6 % (43.0-81.0); PLATELET COUNT (AUTO) 242 K/uL (150-450); RED BLOOD CELL COUNT(AUTO) 3.33 MIL/uL (4.0-5.2); WHITE BLOOD COUNT (AUTO) 14.1 K/uL (4.3-11.0)
[2023-03-18 07:46] LABS: ALANINE AMINOTRANSFERASE 12 U/L (12-78); ALBUMIN 1.5 g/dL (3.4-5.0); ALKALINE PHOSPHATASE 94 U/L (46-116); ASPARTATE AMINOTRANSFERASE 15 U/L (15-37); BILIRUBIN,TOTAL 0.5 mg/dL (0.2-1.0); CALCIUM, SERUM 7.8 mg/dL (8.5-10.1); CARBON DIOXIDE 19 mmol/L (21-32); CHLORIDE 109 mmol/L (98-107); CREATININE 0.6 mg/dL (0.6-1.3); GLUCOSE 132 mg/dL (74-106); POTASSIUM 3.4 mmol/L (3.5-5.1); SODIUM SERUM 138 mmol/L (136-145); TOTAL PROTEIN, SERUM 6.1 g/dL (6.4-8.2); UREA NITROGEN, BLOOD 8 mg/dL (7-18)
[2023-03-18 08:00] VITALS: BP 102/51; TEMP 98.6; O2SAT 97
[2023-03-18] MEDS: AMLODIPINE BESYLATE 2.5 MG TABLET PO SCH (09:00)
[2023-03-18] MEDS: BLOOD SUGAR DIAGNOSTIC 1 EACH STRIP IN SCH ×2 (09:02→12:12)
[2023-03-18] MEDS: GABAPENTIN 100 MG CAPSULE PO SCH ×2 (09:02→13:35)
[2023-03-18] MEDS: CALCIUM CARBONATE (1250) 500 MG TABLET PO SCH (09:02)
[2023-03-18] MEDS: MEGESTROL ACETATE 40 MG TABLET PO SCH (09:02)
[2023-03-18] MEDS: ASCORBIC ACID 500 MG TABLET PO SCH (09:02)
[2023-03-18] MEDS: MULTIVIT W/MINERALS 1 TAB TABLET PO SCH (09:02)
[2023-03-18] MEDS: DAPAGLIFLOZIN PROPANEDIOL 5 MG TABLET PO SCH (09:03)
[2023-03-18] MEDS: LEVOTHYROXINE SODIUM 100 MCG TABLET PO SCH (09:03)
[2023-03-18] MEDS: PROSOURCE / PROSTAT (PYXIS) 30 ML UDC GT SCH (09:03)
[2023-03-18] MEDS: GLUCERNA SHAKE 237 ML CAN PO SCH ×2 (09:03→12:12)
[2023-03-18] MEDS: PANTOPRAZOLE 40 MG TABLET.DR PO SCH (09:03)
[2023-03-18] MEDS: ARGININE/GLUTAMINE/CALCIUM BMB 1 EACH POWD.PACK PO SCH (09:04)
[2023-03-18] MEDS: THERAHONEY GEL 1.5 OZ TUBE TP SCH (09:05)
[2023-03-18] MEDS: Z GUARD REMEDY 4 OZ OINT TP SCH (09:06)
[2023-03-18] MEDS: INSULIN GLARGINE, 100 UNIT/ML CARTRIDGE SQ SCH (09:14)
[2023-03-18] MEDS: ENOXAPARIN SODIUM 40 MG/0.4 ML DISP.SYRIN SQ SCH (09:36)
[2023-03-18] MEDS ORDERED: POTASSIUM CHLORIDE 20 MEQ TAB.PRT.SR PO SCH (10:30)
[2023-03-18] MEDS ORDERED: POTASSIUM CHLORIDE 20 MEQ POWDER PACKET PO ONE (11:30)
[2023-03-18] MEDS ORDERED: MORPHINE SULFATE INJ 2 MG/ML DISP.SYRIN IM PRN (15:00)
== END 2023-03-18 16:30 | DRG 854 ==
LOC: ER 15:32 → MED 18:18 → ICU 03-11 11:36 → MED 03-11 18:16
PROVIDERS: ADMIT Nurse Practitioner Acute Care
PROC: 0KBW0ZZ Excision of Left Foot Muscle, Open Approach (ICD-10-PCS; principal; 2023-03-10)
PROC: B410YZZ Fluoroscopy of Abdominal Aorta using Other Contrast (ICD-10-PCS; 2023-03-11)
PROC: B41FYZZ Fluoroscopy of Right Lower Extremity Arteries using Other Contrast (ICD-10-PCS; 2023-03-11)
PROC: 0Y6C0Z1 Detachment at Right Upper Leg, High, Open Approach (ICD-10-PCS; 2023-03-16)
PROC: 30233N1 Transfusion of Nonautologous Red Blood Cells into Peripheral Vein, Percutaneous Approach (ICD-10-PCS; 2023-03-16)
DX: A41.9 Sepsis, unspecified organism (principal); E11.52 Type 2 diabetes mellitus with diabetic peripheral angiopathy with gangrene; E44.0 Moderate protein-calorie malnutrition; E87.1 Hypo-osmolality and hyponatremia; N39.0 Urinary tract infection, site not specified; M86.18 Other acute osteomyelitis, other site; I70.261 Atherosclerosis of native arteries of extremities with gangrene, right leg; L03.115 Cellulitis of right lower limb; I82.401 Acute embolism and thrombosis of unspecified deep veins of right lower extremity; E11.69 Type 2 diabetes mellitus with other specified complication; I50.9 Heart failure, unspecified; I11.0 Hypertensive heart disease with heart failure; L97.519 Non-pressure chronic ulcer of other part of right foot with unspecified severity; L97.529 Non-pressure chronic ulcer of other part of left foot with unspecified severity; E11.42 Type 2 diabetes mellitus with diabetic polyneuropathy; E11.621 Type 2 diabetes mellitus with foot ulcer; E11.622 Type 2 diabetes mellitus with other skin ulcer; E11.65 Type 2 diabetes mellitus with hyperglycemia; Z89.421 Acquired absence of other right toe(s); Z79.84 Long term (current) use of oral hypoglycemic drugs; Z79.899 Other long term (current) drug therapy; R79.89 Other specified abnormal findings of blood chemistry; E78.5 Hyperlipidemia, unspecified; E88.09 Other disorders of plasma-protein metabolism, not elsewhere classified; E86.1 Hypovolemia; E03.9 Hypothyroidism, unspecified; E87.6 Hypokalemia; N32.81 Overactive bladder; Z79.4 Long term (current) use of insulin; D64.9 Anemia, unspecified; B96.1 Klebsiella pneumoniae [K. pneumoniae] as the cause of diseases classified elsewhere
CPT/HCPCS: 36415; 73630-TC; 73700-TC; 73718-TC; 74018; 75625; 80048-TC; 80053-TC; 80076-TC; 80202-TC; 81001; 82962-TC; 83735-TC; 84100-TC; 84443-TC; 84550-TC; 85025-TC; 85027-TC; 85610-TC; 85652-TC; 85730-TC; 86140-TC; 86850-TC; 87081-TC; 87086-TC; 93307-TC; A4223; A6253; A6403; A9563; C1769; C1894; G0378; J0692; J0696; J1100; J1644; J1650; J1815; J2270; J2370; J2405; J2543; J3370; J3475; J3490; J7030; J7050; J7060; P9016; Q9967